=== PATIENT | male | born 1960 | race Caucasian/White ===

== ENCOUNTER 2023-01-25 16:17 | Outpatient (CLI) | payer BC, SELFPAY ==
--- NOTE | ~2023-01-25 | XR_ITS ---
XR cervical spine 4-5V 01/25/2023 17:29 Indication: Neck pain. Procedure: 5 views of the cervical spine Comparison: No prior studies for comparison. Findings: There is mild disc narrowing at C5-6. Vertebral body heights are maintained. No prevertebra l soft tissue swelling. No fracture or traumatic malalignment. Odontoid process is normal. Lung apice s are normal. There is mild multilevel uncinate hypertrophy of the lower cervical spine. Impression: 1: Mild cervical spondylosis. Reviewed, dictated and finalized at location A. Impression: 1: Mild cervical spondylosis.
== END 2023-01-25 16:18 | disposition home or self-care (01) ==
PROVIDERS: PCP Internal Medicine; Visit Provider Internal Medicine
DX: M54.2 Cervicalgia (principal); M43.02 Spondylolysis, cervical region
CPT/HCPCS: 72050

== ENCOUNTER 2024-11-28 07:24 | Outpatient (CLI) | payer BC, SELFPAY ==
--- OUTSIDE RECORDS SUMMARY | 2024-11-28 07:29 | XMS_ITS | Clinical Summary ---
Author Organization [facility] Address [address] [facility], [place] [address] Phone Care Team Providers Care Podiatric Aide Name Role Phone Domenico Delgado DO Unavailable Bill Leblanc MD Primary Care Provider [phone] Allergies No known active allergies Medications diphenhydrAMINE (BENADRYL) 50 MG Capsule Take 50 mg by mouth nightly as needed. Active meloxicam (MOBIC) 15 MG Tablet as needed. 02/15/2021 Active cyclobenzaprine (FLEXERIL) 5 MG Tablet 3 times daily as needed. 02/15/2021 Active pantoprazole (PROTONIX) 40 MG Tablet Delayed Response Take 1 Tablet by mouth daily. 30 Tablet 5 11/13/2021 Active Active Problems No known active problems Family History Medical History Relation Name Comments Hypertension Brother Diabetes Father Cancer Maternal Grandfather Other-comment Mother ALS Relation Name Status Comments Brother Father Maternal Grandfather Mother Social History Tobacco Use Types Packs/Day Years Used Date Smoking Tobacco: Never Smokeless Tobacco: Never Alcohol Use Standard Drinks/Week Comments Yes 0 (1 standard drink = 0.6 oz pur e alcohol) on Weekends Sex and Gender Information Value Date Recorded Sex Assigned at Not on file Legal Sex Male 2:01 PM CDT Gender Identity Not on file Sexual Orientation Not on file Last Filed Vital Signs Vital Sign Reading Time Taken Comments Blood Pressure 108/79 11/13/2021 2:36 PM CDT Pulse 66 11/13/2021 2:36 PM CDT Temperature 36.4 C (97.5 F) 04/19/2021 12:50 PM CDT Respiratory Rate 16 11/13/2021 2:36 PM CDT Oxygen Saturation 100% 11/13/2021 2:36 PM CDT Inhaled Oxygen Concentration - - Weight 85.7 kg (189 lb) 10/27/2021 1:00 PM CDT Height 188 cm (6' 2 ) 10/27/2021 1:00 PM CDT Body Mass Index 24.27 10/27/2021 1:00 PM CDT Plan of Treatment Health Maintenance Due Date Last Done Comments Hepatitis C Virus (HCV) Screening 1960 TdaP Immunization 1962 Cologuard 2012 Immunochemical Fecal Occult Blood 2012 Pneumococcal Immunization (5 0+ years) (1 of 1 - PCV) 2012 Zoster Immunization (1 of 2) 2012 PSA Discussion 2017 Influenza Immunization (#1) 2024 SARS-COV-2 Immunization ( - season) 2024 Colonoscopy 11/13/2026 11/13/2021, 08/20/2016 Colorectal Cancer Screening 11/13/2026 Respiratory Syncytial Virus (RSV) Immunization (Adult) (1 - 1-dose 75+ series) 2037 11/13/2021, 08/20/2016 Hepatitis B Immunization Aged Out No longer eligible based on patient's age to complete this topic Meningococcal Immunization (ACWY) Aged Out No longer eligible b ased on patient's age to complete this topic Pneumococcal Immunization Combined Aged Out No longer eligible b ased on patient's age to complete this topic Rotavirus Immunization Aged Out No lo nger eligible based on patient's age to complete this topic Procedures Procedure Name Priority Date/Time Associated Diagnosis Comments COLONOSCOPY Routine 08/20/2016 from Last 3 Months or Most Recently Relevant to Health Maintenance Results * COLONOSCOPY (08/20/2016) Sea Palmer MD PROCEDURE/MINOR SURGICAL ORDE KARLY Final Result from Last 3 Months or Most Recently Relevant to Health Maintenance Insurance [facility] Care Teams Podiatric Aide Relationship Specialty Start Date End Date Bill Leblanc MD [address] [place] [address] PCP - General Internal Medicine 11/13/21 Domenico Delgado DO Gastroenterology 08/23/16
--- OUTSIDE RECORDS SUMMARY | 2024-11-28 07:29 | XMS_ITS | Continuity of Care Document ---
Author Organization [facility] Address [address] [place] [address] Phone Care Team Providers Care Concrete Pipe Making Machine Operator Name Role Phone Kaila AVILA, SHELLEYT, [place] Unavailable Unavailable Procedures Procedure Date Doc neg elder mal no plan PT Re-evaluation Neuromuscular Re-Ed Therapeutic Exercise Progress Note Therapeutic Activities Neuromuscular Re-Ed Therapeutic Exercise Therapeutic Activities Neuromuscular Re-Ed Therapeutic Exercise Therapeutic Activities Neuromuscular Re-Ed Therapeutic Exercise Therapeutic Activities Neuromuscular Re-Ed Therapeutic Exercise Therapeutic Activities Neuromuscular Re-Ed Therapeutic Exercise Doc neg elder mal no plan PT Evaluation Moderate Complexity Therapeutic Activities Neuromuscular Re-Ed Therapeutic Exercise Advance Directives Directive Yes / No Effective Date File Name No Information Encounters Encounter Description Practice Location Reason(s) For Visit Diagnoses Date Provider Providers Copied on Encounter [facility] [facility] [place], [place], [id number], tel:[phone] [place] No Information 4 Kaila Burris. . [facility] [address], [place], [place], [id number], [place] tel:[phone] [place] No Information 3 Kaila Burris. . Referring Provider: Julio Cesar Morrell, [address] [place], [place] [address], [place], [address]. tel:[phone] [facility], [address], [place], [place], [address], [place] tel:[phone] [place] No Information 3 Kaila Burris. . Referring Provider: Julio Cesar Morrell, [address] [place], [place] [address], [place], [address]. tel:[phone] [facility], [place], [place], [address], [place] tel:[phone] [place] No Information 3 Kaila Burris. . Referring Provider: Julio Cesar Morrell, [address] [place], [place] [address], [place], [address]. tel:[phone] [facility], [place], [place], [address], [place] tel:[phone] [place] No Information 3 Kaila Burris. . Referring Provider: Julio Cesar Morrell, [address] [place], [place] [address], [place], [address]. tel:[phone] [facility], [place], [place], [address], [place] tel:[phone] [place] No Information 3 Kaila Burris. . Referring Provider: Julio Cesar Morrell, [address] [place], [place] [address], [place], [address]. tel:[phone] [facility], [place], [place], [address], [place] tel:[phone] [place] No Information 3 Kaila Burris. . Referring Provider: Julio Cesar Morrell, [address] [facility] [facility] [address], [place], [address]. tel:[phone] [facility] [place], [address] [facility] [address], [place], [place], [address], tel:[phone] [place] No Information 3 Kaila Burris. . Referring Provider: Julio Cesar Morrell, [address] [facility] [address], [place], [address]. tel:[phone] Family History Family Member Type Diagnosis Age At Onset No Information Payers Payer name Insurance type Covered democrat ID Linda nair(s) [facility] Attorneys at [facility] [place] 00 Social History Type Description Quantity Date Captured Comments Sex Male Smoking Status No Information Chief Complaint And Reason For Visit No Information Reason For Referral Reason For Referral No Information History Of Present Illness Encounter Date Complaint History Of Prese nt Illness No Information Functional Status Date Functional Assessmen t No Information Instructions Date Instruction Additional Infor mation No Information Assessments Type Assessment Date No Information Patient Care Teams Name Effective Dates (start - stop) Status Members No Information
[2024-11-28 07:38] LABS: Basophils Percent Auto 1.3 % (0.0-1.0); Eosinophils Absolute Auto 0.43 K/mm3 (0.02-0.50); Eosinophils Percent Auto 5.7 % (1.0-6.0); Hematocrit 47.1 % (40.0-54.0); Hemoglobin 15.9 g/dL (14.0-18.0); Immature Granulocyte Absolute 0.03 K/mm3 (0.00-0.00); Immature Granulocyte Percent A 0.4 % (0.0-0.0); Lymphocytes Absolute Auto 2.18 K/mm3 (1.10-4.50); Lymphocytes Percent Auto 29.1 % (18.0-42.0); Mean Corpuscular HGB Conc 33.8 g/dL (32-36); Mean Corpuscular Hemoglobin 30.5 pg (27.0-31.0); Mean Corpuscular Volume 90.4 fL (78.0-102.0); Mean Platelet Volume 10.8 fl (8.7-11.0); Monocytes Absolute Auto 0.61 K/mm3 (0.10-0.90); Monocytes Percent Auto 8.2 % (2.0-11.0); Neutrophils Absolute Auto 4.13 K/mm3 (1.70-7.20); Neutrophils Percent Auto 55.3 % (50.0-70.0); Platelet Count Result 219 K/mm3 (150-420); Red Blood Count 5.21 M/mm3 (4.70-6.10); Red Cell Distribution Width 12.5 % (11.6-14.4); White Blood Count 7.5 K/mm3 (4.8-10.8)
[2024-11-28 07:40] LABS: Add Urine Microscopic? NO; Appearance Urine Clear (Clear); Bilirubin Urine Negative (Negative); Blood Urine Trace-intact (Negative); Color Urine Light Yellow (Yellow); Glucose Urine UA Negative (Negative); Ketones Urine Negative (Negative); Leukocyte Esterase Ur Negative (Negative); Nitrate Urine Negative (Negative); Protein Urine Negative (Negative); pH Urine 6.5 (5.0-8.0)
[2024-11-28 07:47] LABS: Bacteria Urine None Seen /hpf; RBC Urine 0-2 /hpf (0-2); Squamous Epithelial Cell Urine None Seen /hpf (Few); WBC Urine None seen /hpf (0-3)
[2024-11-28 08:19] LABS: Alanine Aminotransferase 29 U/L (16-63); Albumin Level 4.3 g/dL (3.4-5.0); Alkaline Phosphatase 88 U/L (46-116); Anion Gap 6 mmol/L (4-12); Aspartate Amino Transferase 18 U/L (15-37); Bilirubin,Total 0.8 mg/dL (0.00-1.00); Blood Urea Nitrogen 24 mg/dL (7-18); Calcium 9.3 mg/dL (8.5-10.1); Carbon Dioxide 31 mmol/L (21-32); Chloride 105 mmol/L (98-108); Cholesterol 177 mg/dL (0-200); Estimated Glomerular Filt Rate 57; Glucose 96 mg/dL (70-99); HDL Direct 46 mg/dL (40-60); LDL Cholesterol Calculated 105 mg/dL (<130); Osmolality Calculated 298 mOsm/kg (285-295); Potassium 4.3 mmol/L (3.5-5.1); Prostate Specific Antigen 3.6 ng/mL (< OR = 4.0); Sodium 142 mmol/L (136-145); Thyroid Stimulating Hormone 4.27 uIU/mL (0.36-3.74); Total Protein 7.5 g/dL (6.4-8.2); Triglycerides 129 mg/dL (0-150)
== END 2024-11-28 07:25 | disposition home or self-care (01) ==
PROVIDERS: PCP Internal Medicine; Visit Provider Internal Medicine
DX: Z00.00 Encounter for general adult medical examination without abnormal findings (principal); K21.9 Gastro-esophageal reflux disease without esophagitis
CPT/HCPCS: 36415; 80053; 80061; 81003; 84153; 84443; 85025; G0103

== ENCOUNTER 2025-02-27 09:56 | Outpatient (CLI) | payer BC, SELFPAY ==
--- OUTSIDE RECORDS SUMMARY | 2025-02-27 09:59 | XMS_ITS | Continuity of Care Document ---
Author Organization [facility] Address [address] [place] [address] Phone Care Team Providers Care Coin Purse Assembler Name Role Phone Kaila AVILA, SHELLEYT, [place] [...] Diagnoses Date Provider Providers Copied on Encounter [facility] [facility] [facility] [place], [place], [id number], tel:[phone] [place] No Information 4 Kaila Burris. . [facility] [address], [place], [place], [address], [place] tel:[phone] [place] No Information 3 Kaila Burris. . Referring Provider: Julio Cesar Morrell, [address] [place], [place] [address], [place], [address]. tel:[phone] [facility], [address], [place], [place], [id number], [place] tel:[phone] [place] No Information 3 Kaila Burris. . Referring Provider: Julio Cesar Morrell, [address] [place], [place] [address], [place], [address]. tel:[phone] [facility], [place], [place], [address], [place] tel:[phone] [place] No Information 3 Kaila Burris. . Referring Provider: Julio Cesar Morrell, [address] [place], [place] [address], [place], [address]. tel:[phone] [facility], [place], [place], [address], [place] tel:[phone] [place] No Information 3 Kaila Burris. . Referring Provider: Julio Cesar Morrell, [address] [place], [place] [address], [place], [address]. tel:[phone] [facility], [place], [place], [address], [place] tel:[phone] [place] No Information 3 Kaila Burris. . Referring Provider: Julio Cesar Morrell, [address] [place], [place] [address], [place], [address]. tel:[phone] [facility], [place], [place], [id number], [place] tel:[phone] [place] No Information 3 Kaila Burris. . Referring Provider: Julio Cesar Morrell, [address] [facility] [address], [place], [address]. tel:[phone] [facility] [place], [address] [facility] [address] [facility] [address], [place], [place], [id number], tel:[phone] [place] No Information 3 Kaila Burris. . Referring Provider: Julio Cesar Morrell, [address] [facility] [address], [place], [address]. tel:[phone] Family History Family Member Type Diagnosis Age At Onset No Information Payers Payer name Insurance type Covered constitution party ID Linda nair(s) [facility] Attorneys at [facility] [place] 00 Social History Type Description Quantity [...]
--- OUTSIDE RECORDS SUMMARY | 2025-02-27 09:59 | XMS_ITS | Clinical Summary ---
Author Organization [facility] Address [address] [facility], [place] [address] Phone Care Team Providers Care Electrical Appliance Mechanic Name Role Phone Domenico Delgado DO Unavailable [phone] Bill Leblanc MD Primary Care Provider [phone] Allergies No known active allergies Medications diphenhydrAMINE [...] 1:00 PM CDT Height 188 cm (6' 2) 10/27/2021 1:00 PM CDT Body Mass Index [...] Immunization (#1) 2024 SARS-COV-2 Immunization ( - 2023- season) 2024 Colonoscopy 11/13/2026 11/13/2021, 08/20/2016 Colorectal Cancer Screening 11/13/2026 Respiratory Syncytial Virus (RSV) Immunization (Adult) (1 - 1-dose 75+ series) 2037 Hepatitis B Immunization Aged Out No longer [...] Most Recently Relevant to Health Maintenance Insurance [facility] Care Teams Electrical Appliance Mechanic Relationship Specialty Start Date End Date Bill Leblanc MD [address] [place] [address] PCP - General Internal Medicine 11/13/21 Domenico Delgado DO Gastroenterology 08/23/16
[2025-02-27 10:16] LABS: Add Urine Microscopic? YES; Appearance Urine Clear (Clear); Glucose Urine UA Negative (Negative); Leukocyte Esterase Ur Negative (Negative); Nitrate Urine Negative (Negative); Specific Grav Ur 1.020 (1.010-1.020)
== END 2025-02-27 09:57 | disposition home or self-care (01) ==
LOC: CHSLAB 09:57
PROVIDERS: PCP Internal Medicine; Visit Provider Urology
DX: R31.29 Other microscopic hematuria (principal)
CPT/HCPCS: 81001